=== PATIENT | male | born 1985 | race Caucasian/White ===

== ENCOUNTER 2018-02-05 19:57 | Emergency (ER) | payer OTHER ==
[~2018-02-05] VITALS: Ht 172.7 cm; Wt 97.0 kg
[2018-02-05 20:00] VITALS: TEMP 36.4; Ht 172.7 cm; Wt 97.0 kg
[2018-02-05] MEDS ORDERED: OXYCODONE HCL IR 5 MG TAB (IMMEDIATE RELEASE) PO STA (20:11)
[2018-02-05] MEDS ORDERED: XYLOCAINE 1%/SOD BICARB 20 ML VIAL INFIL ONE (20:15)
[2018-02-05] MEDS ORDERED: BUPIVACAINE 0.5 % 5 MG/1 ML MPF 30ML VIAL INFIL ONE (20:15)
[2018-02-05] MEDS ORDERED: DIPHTHERIA/TETANUS/PERTUSSIS 0.5 ML SYR/VIAL IM. ONE (20:45)
--- NOTE | 2018-02-05 21:04 | DIAGNOSTIC IMAGING REPORT ---
LEFT FINGERS 5 VIEWS CLINICAL HISTORY: Crushing injury. FINDINGS: 5 views of the left 2nd, 3rd, and 4th fingers are obtained. No prior studies are available for comparison at the time of dictation. The skeletal structures are well mineralized. Bandage material is present around the fourth digit. There is a comminuted fracture through the tuft of the fourth distal phalanx with small distracted fragments and overlying soft tissue injury. No additional fracture is identified in the second, third, or fourth fingers. The joint spaces are maintained. Only mild soft tissue swelling suggested in the second and third fingers. IMPRESSION: 1. There is a comminuted fracture through the tuft of the 4th distal phalanx with distracted fragments and overlying soft tissue injury. 2. No additional fracture is identified in the 2nd, 3rd, or 4th fingers. Electronically signed by: Ap Marcelo M.D. 02/05/2018 9:03 PM Dictated Date/Time: 02/05/2018 9:00 PM
[2018-02-05] MEDS ORDERED: OXYCODONE IR HOME PACK PO ONE (22:15)
[2018-02-05] MEDS ORDERED: OXYC1TAB3 PO (22:15)
[2018-02-05] MEDS ORDERED: CEPHALEXIN 500MG HOME PACK 1 EA BTL PO ONE (22:15)
[2018-02-05] MEDS ORDERED: CEPH500C2 PO (22:15)
--- NOTE | 2018-02-05 22:17 | EMERGENCY ROOM VISIT NOTE ---
ED Visit Note First contact with patient: 20:07 CHIEF COMPLAINT: Crush injury left second third and fourth fingers 1 hour ago HISTORY OF PRESENT ILLNESS: Patient is a [id number] 32-year-old male who presents emergency department accompanied by a coworker for evaluation of a crush injury to the left hand, with laceration to the left fourth finger. 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 He was wearing work gloves at the time of the injury. He states that his second and third fingers were pinched, and his fourth finger was lacerated by the injury. They were seen at [facility] and referred to the emergency department. He complains of a constant, throbbing 8/10 pain. The bleeding has stopped. Denies weakness or numbness of the finger. REVIEW OF SYSTEMS: Review of systems as per HPI. All other systems reviewed were negative. At least 6 systems reviewed. PMH: The patient is otherwise healthy without chronic medical problems. No recent surgeries. He is unsure of his last tetanus vaccination. SOCIAL HISTORY: Patient lives at home. Smoker and uses chewing tobacco. PHYSICAL EXAM: Vital Signs: Reviewed Nurse's notes. CONSTITUTIONAL: Patient is an uncomfortable, tearful 32-year-old male who is awake and alert and in moderate distress due to his stated complaint. INTEGUMENTARY: Examination of the left hand note mild bruising and tenderness to palpation of the tips of the second and third fingers. There is some bruising under the nail bed proximally, but no drainable subungual hematoma. No obvious deformity. Examination of the left fourth finger notes a near fingertip avulsion, with complete disruption of the nail from the root. Under anesthesia, the entire nail can be reflected, revealing the nail bed underneath , and distal phalanx. There is no soft tissue loss. Minimal active bleeding. The patient can flex and extend at the DIP. The patient's hands are dirty, but there is no gross contamination of the skin injury. EMERGENCY DEPARTMENT COURSE: The patient was seen and assessed as above. He was medicated with oxycodone 10 mg orally for discomfort. X-rays of the left second third and fourth fingers were obtained. The patient's tetanus was updated. X-rays of the fingers of the left hand noted a comminuted fracture through the tuft of the fourth distal phalanx, no additional fractures fingers. Using sterile technique, the hand was cleansed with Betadine and a digital block was performed on the fourth finger using a 2: 1 mixture of 1% plain buffered lidocaine and 0.5% Sensorcaine. When adequate anesthesia was obtained the wound was explored thoroughly and irrigated copiously using normal saline solution and Betadine. The nail was relocated into the root, with excellent realignment. The remaining total 2 cm laceration that extended both over the medial and lateral aspect of the finger, was repaired using a total of 6, 5-0 nylon sutures. The nail was sutured to the nailbed using 2, 4-0 nylon sutures. The patient tolerated the procedure well. The finger was cleansed, dressed with antibiotic ointment and a bandage and a metal finger splint. Given the open fracture, he will be placed on Keflex. He was also given oxycodone for pain. He was encouraged to follow-up with orthopedics as covered by his Worker' s Compensation insurance for further care and management of his injury. He was given a note to keep him out of work until he is seen and cleared to return by orthopedics. Patient was reviewed in the [facility] Prescription Drug Monitoring Program, it was noted that the patient received multiple Suboxone prescriptions between April and August of last year. He reports that he was on the Suboxone after being on oral pain medications for his shoulder for which he had undergone surgery. He states that he took himself off of the Suboxone. He denies any history of narcotic misuse or abuse and denies that using oxycodone for his acute injury would be problematic. Medication reconciliation: I attest that I have personally reviewed the patient' s current medication list. Blood pressure screening: Patient was found to have a slightly elevated blood pressure due to circumstances. I do not believe that the patient requires hypertension monitoring. LEFT FINGERS 5 VIEWS CLINICAL HISTORY: Crushing injury. FINDINGS: 5 views of the left 2nd, 3rd, and 4th fingers are obtained. No prior studies are available for comparison at the time of dictation. The skeletal structures are well mineralized. Bandage material is present around the fourth digit. There is a comminuted fracture through the tuft of the fourth distal phalanx with small distracted fragments and overlying soft tissue injury. No additional fracture is identified in the second, third, or fourth fingers. The joint spaces are maintained. Only mild soft tissue swelling suggested in the second and third fingers. IMPRESSION: 1. There is a comminuted fracture through the tuft of the 4th distal phalanx with distracted fragments and overlying soft tissue injury. 2. No additional fracture is identified in the 2nd, 3rd, or 4th fingers. Current/Historical Medications Scheduled Cephalexin Monohydrate (Keflex), 500 MG PO QID Scheduled PRN Oxycodone Immediate Rel Tab (Roxicodone Ir), 1-2 TAB PO Q4H PRN for Severe Pain Allergies Coded Allergies: Amoxicillin (Verified Allergy, Severe, HIVES, 02/05/18) Codeine (Verified Allergy, Severe, THROAT SWELLS, 02/05/18) Ibuprofen (Verified Allergy, Severe, GI SYMPTOMS, 02/05/18) Penicillins (Verified Allergy, Severe, HIVES, 02/05/18) Vital Signs Date Time Temp Pulse Resp B/P (MAP) Pulse Ox O2 Delivery O2 Flow Rate FiO2 02/05/18 22:38 55 17 131/65 97 02/05/18 22:08 55 17 131/65 97 Room Air 02/05/18 20:00 36.4 82 18 146/83 96 Room Air Medications Administered Medications (Trade) Dose Ordered Sig/Tyler Route Start Time Stop Time Status Last Admin Dose Admin Lidocaine HCl (Buffered Lidocaine 1% Inj) 20 ml ONE ONCE INFIL 02/05/18 20:15 02/05/18 20:16 DC 02/05/18 20:19 20 ML Bupivacaine HCl (Marcaine 0.5% MPF Inj) 30 ml NOW ONCE INFIL 02/05/18 20:15 02/05/18 20:16 DC 02/05/18 20:19 30 ML Oxycodone HCl (Roxicodone Immediate Rel Tab) 10 mg NOW STAT PO 02/05/18 20:11 02/05/18 20:13 DC 02/05/18 20:18 10 MG Diphtheria/ Pertussis/Tetanus Vacc (Adacel Inj) 0.5 ml ONCE ONCE IM. 02/05/18 20:45 02/05/18 20:46 DC 02/05/18 20:54 0.5 ML Cephalexin Monohydrate (Keflex 500MG Home Pack) 1 homepack NOW ONCE PO 02/05/18 22:15 02/05/18 22:16 DC 02/05/18 22:35 1 HOMEPACK Oxycodone HCl (Roxicodone Immediate Rel 5MG Home Pack) 1 homepack UD ONCE PO 02/05/18 22:15 02/05/18 22:16 DC 02/05/18 22:35 1 HOMEPACK Departure Information Impression Primary Impression: Open fracture of tuft of distal phalanx of finger Additional Impressions: Finger laceration Nailbed contusion, finger Prescriptions Oxycodone Immediate Rel Tab (ROXICODONE IR) 5 Mg Tab 1-2 TAB PO Q4H Y for Severe Pain, #20 TAB For Initial Treatment Prov: Tisha Andersen PA 02/05/18 Cephalexin Monohydrate (KEFLEX) 500 Mg Cap 500 MG PO QID, #40 CAP Prov: Tisha Andersen PA 02/05/18 Referrals No Doctor, Assigned (PCP) Patient Instructions [facility] Additional Instructions DO NOT drive, drink alcohol, operate machinery, or perform dangerous activities today. You were given medications in the ER that can affect your ability to safely function or operate a vehicle. Oxycodone (OxyIR) 5mg: Take 1-2 pills every four hours for breakthrough pain. Avoid alcohol, operating machinery or dangerous equipment, working on ladders or roofs, DRIVING, or situations where being under the influence may be dangerous. It is recommended to use an tqeo-[id number]-[id number] stool softener such as Colace, 100mg twice daily while taking this medication to avoid constipation. Cephalexin(Keflex) 500mg: Take one pill four times daily for 10 days for your skin infection. All antibiotics can cause diarrhea. If this occurs and you feel worse or it does not resolve in 1-2 days follow up with your doctor or return to the Emergency Department as this could be signs of serious underlying problems. Any medication can cause an allergic reaction, stop the pills immediately and return to the ER for rash, hives, breathing difficulties, or swelling. Ibuprofen(Motrin, Advil) may be used for fever or pain. Use 600mg every six hours as needed. Take with food. Avoid using more than 2400mg in a 24 hour period. Do not use 2400mg per day for more than three consecutive days without physician direction. Prolonged inappropriate use can lead to stomach upset or ulcers. (AND/OR) Acetaminophen(Tylenol) may be used for fever or pain. Use 1000mg every six hours as needed. Avoid using more than 3000mg in a 24 hour period. Keep wound clean and dry. Do not allow any crusting or dried blood to accumulate on sutures. Clean gently with mild soap and water daily. Use an antibiotic ointment for 3-4 days, then let wound dry. Ice and elevate for pain and swelling. Keep your hand above the level of your heart to help reduce swelling and pain. Wear the metal finger splint at all times, may remove for wound care. Suture removal in 14 days. Seek immediate medical attention for any signs of infection (increasing redness, swelling, drainage). Follow-up with orthopedic surgery as covered by your Worker's Compensation insurance for further care and management of your injury. Problem Qualifiers Additional Impressions: Finger laceration Encounter type: initial encounter Finger: ring finger Damage to nail status : with damage Foreign body presence: without foreign body Laterality: left Qualified Codes: S61.315A - Laceration without foreign body of left ring finger with damage to nail, initial encounter Nailbed contusion, finger Encounter type: initial encounter Qualified Codes: S60.10XA - Contusion of unspecified finger with damage to nail, initial encounter
[2018-02-05 22:38] VITALS: BP 131/65; PULSE 55; O2SAT 97
== END 2018-02-05 22:39 | disposition home or self-care (01) ==
LOC: C.EDB 19:58 → C.EDD 22:39
DX: S62.635A Displaced fracture of distal phalanx of left ring finger, initial encounter for closed fracture (principal); S61.315A Laceration without foreign body of left ring finger with damage to nail, initial encounter; S60.10XA Contusion of unspecified finger with damage to nail, initial encounter; W23.0XXA Caught, crushed, jammed, or pinched between moving objects, initial encounter; F17.200 Nicotine dependence, unspecified, uncomplicated; Z88.8 Allergy status to other drugs, medicaments and biological substances; Z88.5 Allergy status to narcotic agent; Z88.0 Allergy status to penicillin; Z23 Encounter for immunization